=== PATIENT | female | born 1955 | race Hispanic/Latino ===

== ENCOUNTER → 2023-09-03 | Outpatient (REF) | payer MEDICARE | LOC: MAMMO 12:06 | PROVIDERS: ATTEND Family Medicine | DX: Z12.31 Encounter for screening mammogram for malignant neoplasm of breast (principal) | CPT/HCPCS: 77067 ==

== ENCOUNTER → 2024-11-17 | Outpatient (REF) | payer MEDICARE | LOC: RAD 11:07 | PROVIDERS: ATTEND Specialist/Technologist, Other Surgical Technologist | DX: M54.6 Pain in thoracic spine (principal); R91.8 Other nonspecific abnormal finding of lung field | CPT/HCPCS: 71046; 72072; 72110 ==